=== PATIENT | female | born 1950 | race Caucasian/White ===

== ENCOUNTER 2019-09-22 10:49 | Outpatient (CLI) | payer MEDICARE, OTHER, SELFPAY ==
--- NOTE | ~2019-09-22 | XR_ITS ---
XR knee RT 2V DATE: 09/22/2019 11:15 INDICATION: Generalized right knee pain. No known injury. TECHNIQUE: AP and lateral views COMPARISON: None FINDINGS: No fracture or dislocation or joint effusion. No periosteal reaction or bone destruction. J oint spaces are preserved. No radiopaque intra-articular loose body or chondrocalcinosis. IMPRESSION: No significant abnormality Reviewed, dictated and finalized at location A. IMPRESSION: No significant abnormality
== END 2019-09-22 10:50 | disposition home or self-care (01) ==
PROVIDERS: PCP Physician Assistant
DX: M17.11 Unilateral primary osteoarthritis, right knee (principal)
CPT/HCPCS: 73560

== ENCOUNTER 2019-10-26 10:02 | Outpatient (CLI) | payer MEDICARE, OTHER, SELFPAY ==
--- NOTE | 2019-10-26 10:07 | ECG_ITS ---
Measurements Intervals [place] Rate: 73 P: 34 [place]: 173 QRS: -31 QRSD: 87 T: 5 QT: 368 QTc: 407 Interpretive Statements SINUS RHYTHM WITH MARKED SINUS ARRHYTHMIA LEFT AXIS DEVIATION LOW QRS VOLTAGE IN PRECORDIAL LEADS VOLTAGE CRITERIA FOR LVH POOR R WAVE PROGRESSION, ANTERIOR LEADS BORDERLINE T WAVE ABNORMALITY- INFERIOR LEADS BASELINE ARTIFACT- I, II, AVR, AVL BORDERLINE ECG Electronically Signed On 10-26-2019 10:24:58 CDT by Luisito Ruth D.O.
[2019-10-26 10:54] LABS: Blood Urea Nitrogen 16 mg/dL (7-17); Calcium 9.6 mg/dL (8.4-10.2); Carbon Dioxide 26 mmol/L (22-30); Chloride 105 mmol/L (98-107); Estimated Glomerular Filt Rate > 60; Glucose 122 mg/dL (65-105); Potassium 4.1 mmol/L (3.4-5.0); Sodium 138 mmol/L (137-145)
== END 2019-10-26 10:03 | disposition home or self-care (01) ==
LOC: ANHSURGERY 10:07
PROVIDERS: Anesthesiology; PCP Physician Assistant; Visit Provider Urology
DX: N39.3 Stress incontinence (female) (male) (principal); I10 Essential (primary) hypertension; Z79.899 Other long term (current) drug therapy
CPT/HCPCS: 36415; 80048; 87077; 87086; 87088; 87186; 93005

== ENCOUNTER 2019-11-01 00:34 | Outpatient (CLI) | payer MEDICARE, OTHER, SELFPAY ==
[2019-11-01 18:10] LABS: SARS-CoV-2 RNA PCR Negative
== END 2019-11-01 00:35 | disposition home or self-care (01) ==
LOC: ANHCOVIDDT 00:34
PROVIDERS: PCP Physician Assistant; Visit Provider Urology
DX: Z20.828 Contact with and (suspected) exposure to other viral communicable diseases (principal); Z01.812 Encounter for preprocedural laboratory examination
CPT/HCPCS: 87635; C9803; U0003

== ENCOUNTER 2019-11-02 13:32 | Outpatient (CLI) | payer MEDICARE, OTHER, SELFPAY ==
--- NOTE | ~2019-11-02 | MR_ITS ---
EXAMINATION: MR lumbar spine wo con DATE: 11/02/2019 14:36 INDICATION: Low back pain. TECHNIQUE: Magnetic resonance imaging (MRI) of the lumbar spine was performed without intravenous con trast. Sequences included sagittal T2-weighted FSE, sagittal T2-weighted FS FSE, sagittal T1-weighted FSE, and axial T2-weighted FSE. COMPARISON: None FINDINGS: There is 4 degrees dextrocurvature of lumbar spine. There is 4 mm anterolisthesis of L4 on L5. There is mild chronic anterior wedging of T12 and L1 vertebral bodies. There are Schmorl's nodes from T10-T11 through L2-L3. There is mildly decreased disc height at L1-L2, L2-L3, and L4-L5. A 9 mm lesion of increased T2-weighted signal intensity in L1 vertebral body is likely an atypical hemangiom a in the absence of known malignancy. The distal spinal cord signal intensity is normal. The conus me dullaris is at L1-L2. The following disc levels are specifically discussed: L1-L2: The disc is bulging. There is mild right facet joint osteoarthritis. There is no neural forami nal stenosis. There is mild central canal stenosis. L2-L3: The disc is bulging. There is mild bilateral facet joint osteoarthritis. There is mild bilater al neural foraminal stenosis. There is mild central canal stenosis. L3-L4: The disc is bulging. There is moderate right and mild left facet joint osteoarthritis. There i s mild bilateral neural foraminal stenosis. There is mild central canal stenosis. L4-L5: The disc does not extend beyond the endplate margin. There is severe bilateral facet joint ost eoarthritis. There is mild bilateral neural foraminal stenosis. There is moderate central canal steno sis. L5-S1: The disc does not extend beyond the endplate margin. There is severe bilateral facet joint ost eoarthritis. There is mild bilateral neural foraminal stenosis. There is no central canal stenosis. IMPRESSION: 1. Moderate lumbar spondylosis. 2. 9 mm lesion in L1 vertebral body. In the absence of known malignancy, this finding is likely an at ypical hemangioma. Reviewed, dictated and finalized at location A. IMPRESSION: 1. Moderate lumbar spondylosis. 2. 9 mm lesion in L1 vertebral body. In the absence of known malignancy, this f inding is likely an atypical hemangioma.
== END 2019-11-02 13:33 | disposition home or self-care (01) ==
PROVIDERS: PCP Physician Assistant
DX: M47.896 Other spondylosis, lumbar region (principal)
CPT/HCPCS: 72148

== ENCOUNTER 2019-11-03 03:34 | Day surgery (SDC) | payer MEDICARE, OTHER, SELFPAY ==
[2019-10-26 12:53] VITALS: BMI 38.5
[2019-11-03] MEDS: LACTATED RINGERS 1,000 ML 30 ML IV CONT ×2 (06:30→09:00)
[2019-11-03 06:56] VITALS: BP 104/40; PULSE 66; RESP 18; TEMP 36.6; O2SAT 97
--- NOTE | 2019-11-03 07:06 | P.PNAN_ITS ---
Anes - Initial Pre Proc Eval Procedure: Operation Date: 11/03/19 07:30 Proposed Procedures p Urethral Sling - Maicol Ferreira MD Date/Time: 11/03/19 07:06 Surgeon: Maicol Ferreira MD Pre Op Diagnosis: Stress Incontinence Patient Data Age: 69 Gender: F Height: 5 ft 5.5 in Weight: 106.59 kg Last Vital Signs Temp 36.6 C 11/03/19 06:56 Pulse 66 11/03/19 06:56 Resp 18 11/03/19 06:56 BP 104/40 L 11/03/19 06:56 Pulse Ox 97 11/03/19 06:56 Allergies Allergy/AdvReac Type Severity Reaction Status Date / Time Penicillins Allergy Intermediate Rash Verified 11/03/19 06:05 Home Medications Medication Instructions Recorded Confirmed Type albuterol sulfate [Ventolin HFA] 1 inh INHALATION PRN PRN 10/26/19 11/03/19 History amiloride 5 mg PO DAILY 10/26/19 10/26/19 History aspirin 81 mg PO DAILY 10/26/19 11/03/19 History celecoxib [Celebrex] 100 mg PO BID 10/26/19 11/03/19 History cholecalciferol (vitamin D3) 25 mcg PO DAILY 10/26/19 11/03/19 History cyclobenzaprine 5 mg PO HS 10/26/19 11/03/19 History duloxetine 60 mg PO HS 10/26/19 11/03/19 History escitalopram oxalate 20 mg PO HS 10/26/19 11/03/19 History furosemide 20 mg PO 3XW 10/26/19 11/03/19 History gabapentin 300 mg PO TID 10/26/19 10/26/19 History meloxicam 7.5 mg PO DAILY 10/26/19 11/03/19 History metoprolol succinate 25 mg PO DAILY 10/26/19 11/03/19 History nortriptyline 10 mg PO HS 10/26/19 11/03/19 History [id number]-fish oil [[place]-3 1 cap PO DAILY 10/26/19 11/03/19 History Fish Oil] omeprazole 40 mg PO DAILY 10/26/19 10/26/19 History ondansetron HCl [Zofran] 4 mg PO Q6H PRN 10/26/19 10/26/19 History rosuvastatin [Crestor] 5 mg PO DAILY 10/26/19 11/03/19 History trazodone 50 mg PO HS 10/26/19 11/03/19 History umeclidinium [Incruse Ellipta] 1 inh INHALATION DAILY 10/26/19 11/03/19 History Patient hx anesthesia problems: none Family hx anesthesia problems: none [facility] Past Medical History Medical History (Updated 11/03/19 @ 07:06 by Efrem Lau MD) COPD (chronic obstructive pulmonary disease) HTN (hypertension) Hyperlipidemia Obesity Surgical History Surgical History (Updated 11/03/19 @ 07:07 by Efrem Lau MD) History of shoulder surgery Social History Social History Smoking status: Former smoker Second hand tobacco smoke exposure: No Smoking end date: 05/17/11 Alcohol intake: current Gender identity (if verbalized by the patient): Female Anes - Eval Final PreProcedure Day of Procedure 11/03/19 07:06 Patient weight: obese Heart: regular rate and rhythm Lungs: clear to auscultation Airway: Mallampati scale class II Neurological: alert and oriented Last oral intake: >/= 8 hours ASA classification: IV Emergent: no Anesthetic plan: proceed Anesthesia type and monitoring: general GIVS and standard monitoring Informed Consent: The patient's anesthetic plan and its attendant risks and benefits were discussed with the patient/family/POA. Questions were solicited and answers provided to the satisfaction of the patient/family/POA.
--- NOTE | 2019-11-03 07:13 | WPDHPUPDATE1 ---
History and Physical Update Update Date/Time: 11/03/19 07:13 History and Physical has been reviewed, including an updated exam of the patient. There are NO changes in the patient's condition. Risks, benefits, and alternatives have been discussed and questions answered. Patient agrees to proceed with procedure.
[2019-11-03] MEDS: levoFLOXacin 500 MG/D5W 100 ML 500 MG/100 ML BAG 100 MG IVPB (07:27)
[2019-11-03] MEDS: BUPIVACAINE/EPINEPHRINE 0.25% 50 ML VIAL 10 ML INFILTRATE (07:36)
--- NOTE | 2019-11-03 08:04 | PM.PROC ---
Procedure Note - Detailed Date of procedure: 11/03/19 Pre-op diagnosis: Stress Incontinence Stress urinary incontinence Post-op diagnosis: same Procedure performed: Transobturator Mid-urethral sling Cystoscopy Description of procedure: This is a patient with confirmed stress urinary incontinence. She desires correction. She understands the risks of bleeding, infection, damage to the urinary tract, lack of cure of stress incontinence, recurrence of stress incontinence, postoperative voiding dysfunction including incontinence and retention, need for ancillary procedures to loosen remove the sling, postoperative voiding dysfunction including retention and overactive bladder, hip and leg pain, dyspareunia, mesh related complications including exposure and extrusion. She agrees to proceed. She understands it will not help overactive bladder symptoms if present. She was correctly identified and informed consent obtained. She is brought to the operating room. She was given appropriate anesthesia. She was placed in the dorsal lithotomy position. All pressure points were padded. She was given appropriate perioperative antibiotics and a time-out performed. A Scott catheter is placed. I marked out the thigh incisions anesthetize the skin and made those incisions. I anesthetized the anterior vaginal wall over the mid urethra. I made a 1 cm incision. I dissected out laterally taking great care not to injure the urethra or the vaginal wall. Passed the helical trocars 1st on the left and then on the right from the thigh incision towards the vaginal incision. Sling was connected to the trocars and brought out through the thigh incision. I tensioned the sling appropriately. I cut and removed the plastic sheaths. I closed the incision with 2 0 Vicryl. I then performed cystoscopy. There was no surgical artifact or abnormalities inside the bladder. The urethra was normal without surgical artifact. I cut the excess sling material. I closed the incisions with glue. She was awakened and transferred to the PACU in stable condition. Implants: Mid urethral sling Surgeon: Maicol Ferreira MD Drains: No Packing: No Pathology: none sent Complications: No immediate complications Condition: stable Disposition: PACU
[2019-11-03 08:08] VITALS: BP 118/56; PULSE 82; RESP 18; O2SAT 92
[2019-11-03 08:30] VITALS: BP 118/56; PULSE 84; RESP 16
[2019-11-03 09:00] VITALS: BP 129/65; PULSE 77; RESP 14
[2019-11-03 09:25] VITALS: BP 129/65; PULSE 71; RESP 16
== END 2019-11-03 09:36 | disposition home or self-care (01) ==
PROVIDERS: PCP Physician Assistant; Visit Provider Urology
PROC: (CPT 57288; principal; 2019-11-03 07:30)
DX: N39.3 Stress incontinence (female) (male) (principal); I10 Essential (primary) hypertension; E78.5 Hyperlipidemia, unspecified; J44.9 Chronic obstructive pulmonary disease, unspecified; Z79.82 Long term (current) use of aspirin; E66.9 Obesity, unspecified; Z68.37 Body mass index [BMI] 37.0-37.9, adult
CPT/HCPCS: 57288; A9270; C1771; J1956; J2704; J7030; J7120

== ENCOUNTER 2019-12-27 07:11 | Outpatient (CLI) | payer MEDICARE, OTHER, SELFPAY ==
--- NOTE | ~2019-12-27 | MR_ITS ---
EXAMINATION: MR cervical spine wo con DATE: 12/27/2019 09:16 INDICATION: Cervical radiculopathy, neck and right arm pain. Frequent falls. TECHNIQUE: Magnetic resonance imaging (MRI) of the cervical spine was performed without intravenous c ontrast. Sequences included sagittal T2-weighted FSE, sagittal T2-weighted FS FSE, sagittal T1-weight ed FSE, axial MERGE and axial T2-weighted FSE. COMPARISON: Cervical spine CT dated 08/16/2016 FINDINGS: Bone alignment is normal. There is been interval anterior spinal fusion with metallic magnetic field artifact associated with anterior plate and screw fixation extending from C3 through C6. Vertebral maxime dy heights are normal. Bone marrow signal intensity is normal. Severe disc height loss with degenera tive endplate changes at C6-C7. Cord signal intensity is normal. 1.2 cm T2 hyperintense right thyroid nodule. The following disc levels are specifically discussed: C2-C3: The disc does not extend beyond the endplate margin. There is mild left uncovertebral joint os teoarthritis. There is moderate bilateral facet joint osteoarthritis. There is mild bilateral neural foraminal stenosis. There is no central canal stenosis. C3-C4: The disc space and right facet joint are fused. There is mild left facet joint osteoarthritis. There is mild left and moderate right neural foraminal stenosis. There is no central canal stenosis. C4-C5: Disc space is fused mild hypertrophic changes at the endplates at the bilateral foraminal zone s. There is moderate right and severe left facet joint osteoarthritis. There is mild right neural for aminal stenosis. There is minimal central canal stenosis. C5-C6: Disc space is fused. Mild hypertrophic change along the right posterior margins of the disc sp andreas. There is mild right and moderate left facet joint osteoarthritis. There is moderate left and mil d to moderate right neural foraminal stenosis. There is minimal central canal stenosis. C6-C7: Posterior disc osteophyte complex. There is severe bilateral uncovertebral joint osteoarthriti s. There is moderate bilateral facet joint osteoarthritis. There is moderate left and mild to moderat e right neural foraminal stenosis. There is mild central canal stenosis. C7-T1: Disc is mildly bulging. There is no uncovertebral joint osteoarthritis. There is a right and s evere left facet joint osteoarthritis. There is no neural foraminal stenosis. There is no central can al stenosis. IMPRESSION: 1. Moderate cervical spondylosis with interval instrumented C3-C6 anterior spinal fusion. Reviewed, dictated and finalized at location A. IMPRESSION: 1. Moderate cervical spondylosis with interval instrumented C3-C6 anterior spin al fusion.
== END 2019-12-27 07:12 | disposition home or self-care (01) ==
PROVIDERS: PCP Physician Assistant
DX: M54.5 Low back pain (principal); M47.22 Other spondylosis with radiculopathy, cervical region
CPT/HCPCS: 72141

== ENCOUNTER 2020-01-01 10:03 | Outpatient (CLI) | payer MEDICARE, OTHER, SELFPAY ==
--- NOTE | ~2020-01-01 | MM_ITS ---
EXAMINATION: MM diagnostic sarah BI w eugenie HISTORY: Left breast pain TECHNIQUE: ML, MLO and cc 3-D tomosynthesis images of both breasts were performed and synthetic 2-D i mages were generated. CAD analysis was submitted and interpreted. COMPARISON: 07/01/2012ilateral digital screening mammogram BREAST PARENCHYMAL COMPOSITION: The breasts are heterogeneously dense, which may obscure small masses . FINDINGS: There is no interval suspicious mass or architectural distortion or significant new or deve loping density of either breast compared to 07/01/2012. There are scattered bilateral benign calcifica tions. Intramammary lymph nodes are noted on the left. Given the history of left breast pain, left breast ultrasound examination is recommended. IMPRESSION: No mammographic evidence of malignancy is demonstrated. Scattered bilateral benign calcifications Left breast ultrasound examination is recommended given the clinical presentation of left mastodynia BI-RADS Category 0: Incomplete: Needs additional imaging evaluation. Reviewed, dictated and finalized at location A. IMPRESSION: No mammographic evidence of malignancy is demonstrated. Scattered bilateral manju ign calcifications Left breast ultrasound examination is recommended given the clinical presentati on of left mastodynia BI-RADS Category 0: Incomplete: Needs additional imaging evaluation.
== END 2020-01-01 10:04 | disposition home or self-care (01) ==
PROVIDERS: PCP Physician Assistant
DX: R92.8 Other abnormal and inconclusive findings on diagnostic imaging of breast (principal)
CPT/HCPCS: 77062; 77066; G0279

== ENCOUNTER 2020-01-04 11:56 | Outpatient (CLI) | payer MEDICARE, OTHER, SELFPAY ==
--- NOTE | ~2020-01-04 | US_ITS ---
US breast LT complete DATE: 01/04/2020 12:36 INDICATION: Left mastodynia TECHNIQUE: High-resolution ultrasound imaging of the complete left breast COMPARISON: 01/01/2020 diagnostic bilateral digital mammogram FINDINGS: No suspicious mass or shadowing or cyst is detected sonographically. IMPRESSION: BI-RADS Category 2: Benign Recommendation: Routine mammographic screening Reviewed, dictated and finalized at Location A. Reviewed, dictated and finalized at location A.
== END 2020-01-04 11:57 | disposition home or self-care (01) ==
PROVIDERS: PCP Physician Assistant
DX: R92.8 Other abnormal and inconclusive findings on diagnostic imaging of breast (principal)
CPT/HCPCS: 76641

== ENCOUNTER 2020-06-12 10:23 | Outpatient (CLI) | payer MEDICARE, OTHER, SELFPAY ==
--- NOTE | 2020-06-12 11:15 | NEURO_ITS ---
Impression: # Complains of dropping things from right hand. History of neck surgeryX2. # No Carpal Tunnel Syndrome. # No ulnar neuropathy. # Needle/EMG exam reveals decreased motor unit potentials in triceps and biceps muscles as well. # Clinical correlation recommended; Question of higher involvement likely, could be related to old surgeries. Nerve Conduction Studies Anti Sensory Summary Table Stim Site NR Peak (ms) P-T Amp (?V) Site1 Site2 Delta-P (ms) Dist (cm) Hardy (m/s) Right Median Anti Sensory (2-3nd Digit) Wrist 3.1 26.4 Wrist 2-3nd Digit 3.1 14.0 45 Wrist 3.1 31.2 Wrist 2-3nd Digit 3.1 14.0 45 Right Radial Anti Sensory (Base 1st Digit) Wrist 2.7 9.4 Wrist Base 1st Digit 2.7 0.0 Right Ulnar Anti Sensory (5th Digit) Wrist 2.6 32.9 Wrist 5th Digit 2.6 14.0 54 Motor Summary Table Stim Site NR Onset (ms) O-P Amp (mV) Site1 Site2 Delta-0 (ms) Dist (cm) Hardy (m/s) Right Median Motor (Abd Poll Brev) Wrist 2.9 4.5 Elbow Wrist 5.1 28.0 55 Elbow 8.0 3.8 Right Ulnar Motor (Abd Dig Minimi) Wrist 2.4 5.1 A Elbow Wrist 5.5 30.0 55 A Elbow 7.9 3.3 F Wave Studies NR F-Lat (ms) L-R F-Lat (ms) Right Median (Mrkrs) (Abd Poll Brev) 28.05 Right Ulnar (Mrkrs) (Abd Dig Min) 27.89 EMG Side Muscle Nerve Root Ins Act Fibs Amp Dur Recrt Comment Right 1stDorInt Ulnar C8-T1 Nml Nml Nml Nml Nml Right Ext Indicis Radial (Post Int) C7-8 Nml Nml Nml Nml Nml Right Ext Digitorum Radial (Post Int) C7-8 Nml Nml Nml Nml Nml Right BrachioRad Radial C5-6 Nml Nml Nml Nml Nml Right PronatorTeres Median C6-7 Nml Nml Nml Nml Nml Right Abd Poll Brev Median C8-T1 Nml Nml Nml Nml Nml Right Biceps Musculocut C5-6 Nml Nml Nml Nml Reduced Right Brachialis Musculocut C5-6 Nml Nml Nml Nml Nml Right Triceps Radial C6-7-8 Nml Nml Nml Nml Reduced Right Deltoid Axillary C5-6 Nml Nml Nml Nml Nml MTDD
== END 2020-06-12 10:24 | disposition home or self-care (01) ==
PROVIDERS: PCP Physician Assistant; Visit Provider Nurse Practitioner Acute Care
DX: M79.601 Pain in right arm (principal)
CPT/HCPCS: 95886; 95909

== ENCOUNTER → 2020-10-30 14:40 | Outpatient (CLI) | payer MEDICARE, SELFPAY ==
--- NOTE | ~2020-10-30 | XR_ITS ---
XR chest 2V DATE: 10/30/2020 16:05 INDICATION: Dyspnea on exertion TECHNIQUE: 2 views COMPARISON: 09/25/2017 two-view chest FINDINGS: Interval anterior surgical cervical spine fusion since 09/25/2017, Mild cardiomegaly. No hilar or mediastinal enlargement. No pulmonary infiltrate or consolidation, pl eural effusion or pulmonary vascular congestion or pneumothorax. Diffuse osteopenia. IMPRESSION: No active pulmonary disease Reviewed, dictated and finalized at location A. IMPRESSION: No active pulmonary disease
== END ==
DX: R06.09 Other forms of dyspnea (principal); R05 Cough
CPT/HCPCS: 71046

== ENCOUNTER → 2020-10-30 14:50 | Outpatient (CLI) | payer MEDICARE, SELFPAY ==
--- NOTE | ~2020-10-30 | XR_ITS ---
XR shoulder RT min 2V DATE: 10/30/2020 16:05 INDICATION: Chronic right shoulder pain TECHNIQUE: 4 views COMPARISON: 09/17/2016 right shoulder FINDINGS: Status post anterior cervical spine surgical fusion at the mid and lower cervical spine wit h 2 separate sets of plates and screws. Diffuse osteopenia. There is mild osteoarthritic spurring of the right humeral head. No fracture, dislocation, periosteal reaction or bone destruction. No significant abnormal right shou lder calcification. IMPRESSION: Osteopenia Mild osteoarthritis at right glenohumeral joint Reviewed, dictated and finalized at location A.
--- NOTE | ~2020-10-30 | XR_ITS ---
XR knee LT 2V DATE: 10/30/2020 16:05 INDICATION: Chronic left knee pain TECHNIQUE: Standing AP and lateral views COMPARISON: None FINDINGS: There is mild periarticular spurring at the patellofemoral joint consistent with osteoarthr itis. There is minimal periarticular spurring at the medial and lateral compartments. Joint spaces ap pear relatively preserved. No fracture or dislocation or joint effusion. No radiopaque intra-articular loose body or chondrocalc inosis is evident. No periosteal reaction or bone destruction. Osteopenia. IMPRESSION: Mild tricompartment osteoarthritic arthritis Osteopenia Reviewed, dictated and finalized at location A.
--- NOTE | ~2020-10-30 | XR_ITS ---
XR knee RT 2V DATE: 10/30/2020 16:05 INDICATION: Chronic right knee pain TECHNIQUE: Standing AP and lateral views COMPARISON: 09/22/2019 right knee FINDINGS: Superior pole patellar enthesopathy. No fracture or dislocation or joint effusion. Joint spaces appear relatively preserved. No radiopaque intra-articular loose body or chondrocalcinosis. No periosteal reaction or bone destruction. IMPRESSION: No significant abnormality Reviewed, dictated and finalized at location A. IMPRESSION: No significant abnormality
== END ==
DX: M54.17 Radiculopathy, lumbosacral region (principal); Z79.891 Long term (current) use of opiate analgesic; G89.4 Chronic pain syndrome; Z51.81 Encounter for therapeutic drug level monitoring; M85.811 Other specified disorders of bone density and structure, right shoulder; M19.011 Primary osteoarthritis, right shoulder; M85.862 Other specified disorders of bone density and structure, left lower leg; M17.12 Unilateral primary osteoarthritis, left knee
CPT/HCPCS: 73030; 73560

== ENCOUNTER → 2021-07-22 10:03 | Outpatient (CLI) | payer MEDICARE, SELFPAY ==
--- NOTE | ~2021-07-22 | US_ITS ---
EXAMINATION: US renal BI EXAM DATE: 07/22/2021 10:29 INDICATION: Chronic kidney disease, stage 2 . TECHNIQUE: Multiple grayscale and Doppler images of the kidneys were obtained (by a technologist who performed the scan) and subsequently reviewed. Comparison is made to prior examination from 06/12/2019 . FINDINGS: Right kidney: There is normal contour and echogenicity. It measures 10.8 x 4.7 x 5.6 centimeters. T here are no focal renal lesions identified. There is no hydronephrosis. Left kidney: There is normal contour and echogenicity. It measures 12.2 x 4.5 x 5.4 centimeters. Th ere are no focal renal lesions identified. There is no hydronephrosis. Small focal echogenic region along the posterior bladder wall measuring about 6 x 9 mm, could not ana m ntify any vascularity within this. Transitional cell cancer not excludable. IMPRESSION: Subcentimeter nodule of soft tissue echogenicity along posterior bladder wall, differenti al diagnosis including ureterocele, transitional cell cancer. Cystoscopy may be appropriate if CT uro gram not an option due to poor renal function. Reviewed, dictated and finalized at location A. MOUNTER IMPRESSION: Subcentimeter nodule of soft tissue echogenicity along posterior bl adder wall, differential diagnosis including ureterocele, transitional cell can cer. Cystoscopy may be appropriate if CT urogram not an option due to poor akua l function.
== END ==
PROVIDERS: Visit Provider Internal Medicine Nephrology
DX: N17.9 Acute kidney failure, unspecified (principal); I25.84 Coronary atherosclerosis due to calcified coronary lesion; I12.9 Hypertensive chronic kidney disease with stage 1 through stage 4 chronic kidney disease, or unspecified chronic kidney disease; N18.2 Chronic kidney disease, stage 2 (mild); J42 Unspecified chronic bronchitis; K21.9 Gastro-esophageal reflux disease without esophagitis; E78.00 Pure hypercholesterolemia, unspecified
CPT/HCPCS: 76775